=== PATIENT | female | born 1960 | race Caucasian/White ===

== ENCOUNTER 2016-09-08 14:08 | Emergency (ER) | payer BC ==
[2016-09-08 14:31] LABS: URINE APPEARANCE CLEAR; URINE BILIRUBIN NEGATIVE (NEG); URINE BLOOD NEGATIVE (NEG); URINE COLOR YELLOW; URINE GLUCOSE (UA) NEGATIVE (NEG); URINE KETONE NEGATIVE (NEG); URINE LEUKOCYTE ESTERASE POSITIVE (NEG); URINE NITRITE NEGATIVE (NEG); URINE PROTEIN NEGATIVE (NEG)
[2016-09-08 14:35] LABS: URINE RBC 0 /[HPF] (0-5); URINE WBC 0-3 /[HPF] (0-5)
[2016-09-08] MEDS ORDERED: PREMARIN1.25 M1 PO (15:26)
[2016-09-08] MEDS ORDERED: SYNTHROID125 MC1 PO (15:26)
[2016-09-08] MEDS ORDERED: ZOLOFT100 M1 PO (15:26)
[2016-09-08] MEDS ORDERED: SINGULAIR10 M1 PO (15:26)
[2016-09-08] MEDS ORDERED: HYZAAR 100-251 EACH PO (15:26)
[2016-09-08] MEDS ORDERED: ADVAIR 100-501 EACH PO (15:27)
[2016-09-08] MEDS ORDERED: PERCOCET 5-3251 EACH PO (16:16)
== END 2016-09-08 16:30 ==
LOC: EDMED 14:08
PROVIDERS: Emergency Medicine
DX: G89.28 Other chronic postprocedural pain (principal); R10.2 Pelvic and perineal pain
CPT/HCPCS: J1170